=== PATIENT | female | born 1980 | race Caucasian/White ===

== ENCOUNTER → 2020-07-12 | Outpatient (CLI) | payer OTHER | LOC: KOH-I 12:00 | DX: M25.512 Pain in left shoulder (principal); R60.0 Localized edema | CPT/HCPCS: 73221 ==

== ENCOUNTER → 2020-10-24 | Outpatient (CLI) | payer OTHER | LOC: RAD 08:40 | DX: S43.432A Superior glenoid labrum lesion of left shoulder, initial encounter (principal) | CPT/HCPCS: 73040; 73222; A9577; Q9962 ==